=== PATIENT | female | born 1940 | race Caucasian/White ===

== ENCOUNTER 2022-02-07 23:29 | Emergency (ER) | payer MEDICARE, OTHER ==
[2022-02-08 00:03] LABS: BILIRUBIN,URINE NEGATIVE (NEGATIVE); CLARITY,URINE CLEAR; COLOR,URINE YELLOW; GLUCOSE, URINE (UA) NEGATIVE (NEGATIVE); KETONES,URINE NEGATIVE (NEGATIVE); LEUKOCYTE ESTERASE ,URINE NEGATIVE (NEGATIVE); NITRITE,URINE NEGATIVE (NEGATIVE); PH,URINE 5.5 (5-9); PROTEIN,URINE NEGATIVE (NEGATIVE)
[2022-02-08 00:12] LABS: BACTERIA,URINE NEGATIVE /HPF; SQUAMOUS EPITHELIAL CELL,UR RARE /HPF; WBC,URINE 0-2 /HPF
[2022-02-08 00:22] LABS: BASOPHILS % (AUTO) 1 % (0-10); EOSINOPHILS # (AUTO) 0.3 10^3/uL (0.0-0.3); EOSINOPHILS % (AUTO) 5 % (0-10); HEMATOCRIT 39 % (35-52); HEMOGLOBIN 12.5 g/dL (11.5-16.0); LYMPHOCYTES # (AUTO) 1.9 10^3/uL (1.0-4.0); LYMPHOCYTES % (AUTO) 28 % (12-44); MEAN CORPUSCULAR HEMOGLOBIN 29 pg (25-34); MEAN CORPUSCULAR HGB CONC 32 g/dL (32-36); MEAN CORPUSCULAR VOLUME 89 fL (80-99); MONOCYTES # (AUTO) 0.7 10^3/uL (0.0-1.0); MONOCYTES % (AUTO) 10 % (0-12); NEUTROPHILS # (AUTO) 3.7 10^3/uL (1.8-7.8); NEUTROPHILS % (AUTO) 56 % (42-75); PLATELET COUNT 220 10^3/uL (130-400); WHITE BLOOD COUNT 6.6 10^3/uL (4.3-11.0)
[2022-02-08 00:36] LABS: ALBUMIN 4.1 GM/DL (3.2-4.5); CHLORIDE 106 MMOL/L (98-107); POTASSIUM 3.9 MMOL/L (3.6-5.0); SODIUM 141 MMOL/L (135-145)
[2022-02-08 00:37] LABS: AMYLASE 50 U/L (25-125); CALCIUM 9.5 MG/DL (8.5-10.1)
[2022-02-08 00:38] LABS: GLUCOSE 117 MG/DL (70-105)
[2022-02-08 00:39] LABS: TOTAL PROTEIN 7.3 GM/DL (6.4-8.2)
[2022-02-08 00:40] LABS: BILIRUBIN,TOTAL 0.3 MG/DL (0.1-1.0); CARBON DIOXIDE 21 MMOL/L (21-32)
[2022-02-08 00:42] LABS: ALKALINE PHOSPHATASE 73 U/L (40-136); CREATININE SERUM 1.35 MG/DL (0.60-1.30); ERYTHROCYTE SEDIMENTATION RATE 11 MM/HR (0-30); GFR ESTIMATED 39
[2022-02-08 00:43] LABS: BUN/CREATININE RATIO 17
[2022-02-08 00:45] LABS: ALANINE AMINOTRANSFERASE 17 U/L (0-55); MAGNESIUM 2.1 MG/DL (1.6-2.4)
[2022-02-08 00:46] LABS: CREATINE KINASE 116 U/L (29-168); LIPASE 80 U/L (8-78)
[2022-02-08 00:47] LABS: FIBRIN DEGRADATION PRODUCTS < 0.27 UG/ML (0.00-0.49); PARTIAL THROMBOPLASTIN TIME 37 SEC (24-35); PROTHROMBIN TIME PATIENT 13.5 SEC (12.2-14.7)
[2022-02-08 00:53] LABS: CREATINE KINASE MB 1.7 NG/ML (<6.6)
--- NOTE | 2022-02-08 01:16 | ED General ---
General Chief Complaint: Neurological Problems Stated Complaint: SLURRING SPEECH,CP,HEADACHE,BACK PAIN,FATIGUE Source of Information: Patient History of Present Illness Date Seen by Provider: Feb 07, 2022 Time Seen by Provider: 23:43 Allergies and Home Medications Allergies Coded Allergies: No Known Drug Allergies (Unverified , 02/08/22) Physical Exam Vital Signs Vital Signs - First Documented 02/07/22 23:40 Temp 36.1 Pulse 78 Resp 16 B/P (MAP) 160/92 (114) Pulse Ox 98 O2 Delivery Room Air Capillary Refill : Height, Weight, BMI Height: '" Weight: lbs. oz. kg; BMI Method: General Appearance: No Apparent Distress, WD/WN, Obese HEENT: PERRL/EOMI Respiratory: Normal Breath Sounds, No Accessory Muscle Use, No Respiratory Distress Cardiovascular: No Edema, No JVD, No Murmur, Irregularly Irregular Gastrointestinal: Non Tender, Soft Back: Normal Inspection, No CVA Tenderness Extremity: Normal Capillary Refill, Calf Tenderness (RIGHT ), Pedal Edema (2+ EDEMA ON RIGHT; 1+ EDEMA ) Progress/Results/Core Measures Suspected Sepsis SIRS Temperature: Pulse: Respiratory Rate: Laboratory Tests 02/08/22 00:05: White Blood Count 6.6 Blood Pressure / Mean: Laboratory Tests 02/08/22 00:05: Creatinine 1.35H, INR Comment 1.0, Platelet Count 220, Total Bilirubin 0.3 Results/Orders Lab Results Laboratory Tests Test 02/07/22 23:39 02/08/22 00:05 Range/Units Urine Color YELLOW Urine Clarity CLEAR Urine pH 5.5 5-9 Urine Specific [place] 1.015 L 1.016-1.022 Urine Protein NEGATIVE NEGATIVE Urine Glucose (UA) NEGATIVE NEGATIVE Urine Ketones NEGATIVE NEGATIVE Urine Nitrite NEGATIVE NEGATIVE Urine Bilirubin NEGATIVE NEGATIVE Urine Urobilinogen 0.2 < = 1.0 MG/DL Urine Leukocyte Esterase NEGATIVE NEGATIVE Urine RBC (Auto) NEGATIVE NEGATIVE Urine RBC NONE /HPF Urine WBC 0-2 /HPF Urine Squamous Epithelial Cells RARE /HPF Urine Renal Epithelial Cells NONE /HPF Urine Crystals NONE /LPF Urine Bacteria NEGATIVE /HPF Urine Casts NONE /LPF Urine Mucus NEGATIVE /LPF Urine Culture Indicated NO White Blood Count 6.6 4.3-11.0 10^3/uL Red Blood Count 4.32 3.80-5.11 10^6/uL Hemoglobin 12.5 11.5-16.0 g/dL Hematocrit 39 35-52 % Mean Corpuscular Volume 89 80-99 fL Mean Corpuscular Hemoglobin 29 25-34 pg Mean Corpuscular Hemoglobin Concent 32 32-36 g/dL Red Cell Distribution Width 13.2 10.0-14.5 % Platelet Count 220 130-400 10^3/uL Mean Platelet Volume 10.0 9.0-12.2 fL Immature Granulocyte % (Auto) 1 % Neutrophils (%) (Auto) 56 42-75 % Lymphocytes (%) (Auto) 28 12-44 % Monocytes (%) (Auto) 10 0-12 % Eosinophils (%) (Auto) 5 0-10 % Basophils (%) (Auto) 1 0-10 % Neutrophils # (Auto) 3.7 1.8-7.8 10^3/uL Lymphocytes # (Auto) 1.9 1.0-4.0 10^3/uL Monocytes # (Auto) 0.7 0.0-1.0 10^3/uL Eosinophils # (Auto) 0.3 0.0-0.3 10^3/uL Basophils # (Auto) 0.0 0.0-0.1 10^3/uL Immature Granulocyte # (Auto) 0.1 0.0-0.1 10^3/uL Erythrocyte Sedimentation Rate 11 0-30 MM/HR Prothrombin Time 13.5 12.2-14.7 SEC INR Comment 1.0 0.8-1.4 Activated Partial Thromboplast Time 37 H 24-35 SEC D-Dimer < 0.27 0.00-0.49 UG/ML Sodium Level 141 135-145 MMOL/L Potassium Level 3.9 3.6-5.0 MMOL/L Chloride Level 106 98-107 MMOL/L Carbon Dioxide Level 21 21-32 MMOL/L Anion Gap 14 5-14 MMOL/L Blood Urea Nitrogen 23 H 7-18 MG/DL Creatinine 1.35 H 0.60-1.30 MG/DL Estimat Glomerular Filtration Rate 39 BUN/Creatinine Ratio 17 Glucose Level 117 H 70-105 MG/DL Calcium Level 9.5 8.5-10.1 MG/DL Corrected Calcium 9.4 8.5-10.1 MG/DL Magnesium Level 2.1 1.6-2.4 MG/DL Total Bilirubin 0.3 0.1-1.0 MG/DL Aspartate Amino Transf (AST/SGOT) 20 5-34 U/L Alanine Aminotransferase (ALT/SGPT) 17 0-55 U/L Alkaline Phosphatase 73 40-136 U/L Total Creatine Kinase 116 29-168 U/L Creatine Kinase MB 1.7 <6.6 NG/ML Myoglobin 55.4 10.0-92.0 NG/ML Troponin I < 0.028 <0.028 NG/ML C-Reactive Protein High Sensitivity 0.39 0.00-0.50 MG/DL B-Type Natriuretic Peptide 112.6 H <100.0 PG/ML Total Protein 7.3 6.4-8.2 GM/DL Albumin 4.1 3.2-4.5 GM/DL Amylase Level 50 25-125 U/L Lipase 80 H 8-78 U/L TSH [place] Testing 3.30 0.35-4.94 UIU/ML My Orders Orders - RHONDA NATHAN DO Ed Iv/Invasive Line Start (02/07/22 23:50) Ekg Tracing (02/07/22 23:50) Monitor-Rhythm Ecg Trace Only (02/07/22 23:50) Amylase (02/07/22 23:50) Bnp [place] (02/07/22 23:50) Cbc With Automated Diff (02/07/22 23:50) Comprehensive Metabolic Panel (02/07/22 23:50) Creatine Kinase (02/07/22 23:50) Creatine Kinase Mb (02/07/22 23:50) Hs C Reactive Protein (02/07/22 23:50) Fibrin Degradation Products (02/07/22 23:50) Lipase (02/07/22 23:50) Magnesium (02/07/22 23:50) Protime With Inr (02/07/22 23:50) Partial Thromboplastin Time (02/07/22 23:50) Thyroid Analyzer (02/07/22 23:50) Ua Culture If Indicated (02/07/22 23:50) Erythrocyte Sedimentation Rate (02/07/22 23:50) Myoglobin Serum (02/07/22 23:50) Troponin I [place] (02/07/22 23:50) Ct Head Wo-R/O Stroke (02/08/22 00:01) Chest 1 View, Ap/Pa Only (02/08/22 00:01) Ct Angio Head/Neck (02/08/22 02:03) Ct Head Perfusion W/ Contrast (02/08/22 02:03) Ed Iv/Invasive Line Start (02/08/22 02:07) Lactated Ringers (Lr 1000 Ml Iv Solution (02/08/22 02:15) Ed Iv/Invasive Line Start (02/08/22 02:36) Lactated Ringers (Lr 1000 Ml Iv Solution (02/08/22 02:45) Iohexol Injection (Omnipaque 350 Mg/Ml 1 (02/08/22 04:30) Received Contrast (Hold Metformin- Contr (02/08/22 04:30) Ns (Ivpb) (Sodium Chloride 0.9% Ivpb Bag (02/08/22 04:30) Medications Given in ED Current Medications Medications Dose Ordered Sig/Maikel Route Start Time Stop Time Status Last Admin Dose Admin Iohexol 100 ml ONCE ONCE IV 02/08/22 04:30 02/08/22 04:42 DC 02/08/22 04:21 100 ML Lactated Ringer's 1,000 ml @ 0 mls/hr Q0M ONCE IV 02/08/22 02:15 02/08/22 02:16 DC 02/08/22 03:21 999 MLS/HR Lactated Ringer's 1,000 ml @ 0 mls/hr Q0M ONCE IV 02/08/22 02:45 02/08/22 02:46 DC 02/08/22 04:04 999 MLS/HR Sodium Chloride 100 ml ONCE ONCE IV 02/08/22 04:30 02/08/22 04:42 DC 02/08/22 04:21 100 ML Vital Signs/I&O 02/07/22 23:40 Temp 36.1 Pulse 78 Resp 16 B/P (MAP) 160/92 (114) Pulse Ox 98 O2 Delivery Room Air Capillary Refill : Progress Note : Progress Note UNEVENTFUL ER STAY NO DETERIORATION IN PT'S CONDITION DURING ER STAY MARKED DELAY IN OBTAINING CT REPORTS--TECH DELAY IN SENDING IMAGES. ECG Initial ECG Impression Date: Feb 07, 2022 Initial ECG Impression Time: 23:55 Initial ECG Rate: 70 Initial ECG Rhythm: A Fib/Flutter Initial ECG Impression: Nonspecific Changes Initial ECG Comparisson: No Previous ECG Available Departure Impression Primary Impression: ALTERED MENTAL STATUS Additional Impression: MILD DIFFICULTY WITH WORD FINDING Disposition: 01 HOME, SELF-CARE Condition: Stable Departure-Patient Inst. Decision time for Depature: 05:29 Referrals: NO,LOCAL PHYSICIAN (PCP) Primary Care Physician Patient Instructions: Altered Mental Status (DC) Add. Discharge Instructions: CONTINUE YOUR REGULAR MEDICATIONS PRESCRIBED FOLLOW UP YOUR DR THIS WEEK FOR FURTHER CARE. RETURN TO ER IF SYMPTOMS WORSEN All discharge instructions reviewed with patient and/or family. Voiced understanding. RHONDA NATHAN DO Feb 08, 2022 01:15
[2022-02-08] MEDS ORDERED: LACTATED RINGERS 1,000 ML IV ONE ×2 (02:15→02:45)
[2022-02-08] MEDS ORDERED: NS 100 ML (IVPB) BAG IV ONE (04:30)
[2022-02-08] MEDS ORDERED: IOHEXOL 350 MG/ML 100 ML (OMNIPAQUE 350) VIAL IV ONE (04:30)
[2022-02-08] MEDS ORDERED: HOLD METFORMIN - RECEIVED CONTRAST 20 ML VIAL IV SCH (04:30)
[2022-02-08 05:55] VITALS: BP 140/63
--- NOTE | 2022-02-08 06:24 | Diagnostic Imaging Report ---
EXAMINATION: CT cerebral perfusion. INDICATION: Expressive aphasia. Evaluate for stroke. TECHNIQUE: After intravenous administration of contrast, standard CT cerebral perfusion imaging was performed. Cerebral blood volume, cerebral blood flow, mean transit time and Tmax maps were obtained. FINDINGS: Examination demonstrates appropriate arterial input and venous outflow selection. There is mild motion on the translational maps. The perfusion maps demonstrate no regions of diminished cerebral blood flow or evidence of diminished cerebral blood volume. There are no findings of abnormal Tmax prolongation and the mean transit maps appear symmetric. IMPRESSION: 1. No identified core infarct or ischemic penumbra. 2. I agree with the preliminary [facility] report. Dictated by: Dictated on workstation # [id number]
--- NOTE | 2022-02-08 06:30 | Diagnostic Imaging Report ---
PROCEDURE: CT head wo r/o stroke. TECHNIQUE: Multiple contiguous axial images were obtained through the brain without the use of intravenous contrast. Auto Exposure Controls were utilized during the CT exam to meet ALARA standards for radiation dose reduction. INDICATION: Expressive aphasia and altered mental status. Evaluate for stroke. FINDINGS: There is age-related global volume loss. There appear to be some patchy regions of hypoattenuation within the subcortical and deep white matter compatible with chronic microvascular changes. There are no findings of territorial loss of bryant-white differentiation or vasogenic edema. There are no findings of acute hemorrhage. There is no mass effect. There is no hydrocephalus. There is no extra-axial collection. The basilar cisterns are patent. There are few opacified right-sided mastoid air cells. The left are clear. The paranasal sinuses are clear. Orbital contents unremarkable. There is no acute calvarial abnormality. IMPRESSION: 1. Age-related volume loss with mild microvascular changes within the white matter. There are no CT findings of territorial loss of bryant-white differentiation. 2. No findings of hemorrhage, mass effect or hydrocephalus. 3. I agree with the preliminary [facility] report. Dictated by: Dictated on workstation # [id number]
--- NOTE | 2022-02-08 06:43 | Diagnostic Imaging Report ---
PROCEDURE: CT angiography of the head and CT angiography of the neck with and without contrast. TECHNIQUE: Contiguous noncontrast images were obtained from the skull base through the vertex. After intravenous contrast administration, helical CT angiography of the neck was performed. Source data was reformatted into 3D MIP projections. Delayed post contrast acquisition was also obtained. Auto Exposure Controls were utilized during the CT exam to meet ALARA standards for radiation dose reduction. INDICATION: Expressive aphasia. Evaluate for stroke. COMPARISON: CT perfusion imaging and CT head from earlier this same day. FINDINGS: The visualized portions of the thoracic aorta demonstrate no evidence of dissection or aneurysm. There is mild aortic atherosclerosis. There is no significant stenosis of the origins of the great vessels arising from the aortic arch. There is mild atherosclerotic disease at the origin of the right vertebral artery. The right vertebral artery is dominant. The left is markedly hypoplastic. The common carotid arteries demonstrate no significant stenosis. There is mild plaquing at the carotid bifurcations with no significant stenosis by NASCET criteria. The cervical segments of the internal carotid arteries demonstrate no caliber change or dissection. The vertebral arteries throughout the neck appear patent. The intracranial segments of the internal carotid arteries demonstrate mild atherosclerotic disease within the carotid siphons without high-grade stenosis. There is appropriate flow to the level of the carotid terminus with normal flow within the M1 segment of both middle cerebral arteries. There are no findings of an M2 branch occlusion. The anterior cerebral arteries also appear patent. Within the posterior circulation, both of the vertebral arteries are patent. There are patent bilateral posterior inferior cerebellar arteries. The basilar is unremarkable. There is appropriate flow within the superior cerebellar arteries and within both of the posterior cerebral arteries. There are no findings of a [employer] branch occlusion. There are no findings of intracranial aneurysm formation. The dural venous sinuses are patent. There are no CT findings of abnormal intracranial enhancement. There are a few opacified right mastoid air cells. The left are clear. The paranasal sinuses are clear. The soft tissues of the neck demonstrate no acute process. There is a right-sided thyroid nodule. The lung apices are clear. The cervical spine demonstrates background degenerative features but no acute abnormality. Endplate changes are most advanced at C5-C6. IMPRESSION: 1. No CT angiographic evidence of intracranial large vessel occlusion or high-grade intracranial stenosis. 2. No significant stenosis or dissection within the neck. 3. No findings of aneurysm. 4. Dural venous sinuses are patent. 5. No pathologic intracranial enhancement. 6. I agree with the preliminary [facility] report. Dictated by: Dictated on workstation # [id number]
--- NOTE | 2022-02-08 06:47 | Diagnostic Imaging Report ---
INDICATION: Patient has altered mental status. I have no priors. FINDINGS: Calcified granuloma projects over the right lower lung laterally. No noncalcified or suspicious pulmonary nodular density. The heart size within normal limits. No overt failure pattern or vascular congestion. No focal pneumonia. No effusion or pneumothorax. IMPRESSION: No acute appearing abnormality. Dictated by: Dictated on workstation # [id number]
== END 2022-02-08 05:58 | disposition home or self-care (01) ==
LOC: ER 23:34
DX: R41.82 Altered mental status, unspecified (principal); R47.9 Unspecified speech disturbances; E66.9 Obesity, unspecified
CPT/HCPCS: 0042T; 70450; 70496; 70498; 71045; 80053; 81000; 82150; 82550; 82553; 83690; 83735; 83874; 83880; 84443; 84484; 85025; 85379; 85610; 85652; 85730; 86141; 93005; 93041; 99284; 36415